=== PATIENT | female | born 1990 | race African-American/Black ===

== ENCOUNTER 2020-10-20 19:40 | Emergency (ER) | payer OTHER ==
[~2020-10-20] VITALS: Ht 170.2 cm; Wt 119.3 kg
[2020-10-20 19:47] VITALS: Ht 170.2 cm; Wt 119.3 kg
[2020-10-20] MEDS ORDERED: DEPAKOTE500 MG PO (20:10)
[2020-10-20 20:17] VITALS: BP 145/94
== END 2020-10-20 20:17 | disposition home or self-care (01) ==
LOC: ED 19:40
DX: F31.9 Bipolar disorder, unspecified (principal); Z76.0 Encounter for issue of repeat prescription